=== PATIENT | female | born 1975 | race African-American/Black ===

== ENCOUNTER 2018-03-18 13:09 | Emergency (ER) | payer MEDICAID ==
[2018-03-18] MEDS: LIDOCAINE WITH 8.4% SOD BICARB 3 ML DISP.SYRIN. INJ (14:29)
== END 2018-03-18 15:00 | disposition home or self-care (01) ==
LOC: ER 13:09
DX: L02.416 Cutaneous abscess of left lower limb (principal)
CPT/HCPCS: 10060; 99283-25